=== PATIENT | male | born 1950 | race Caucasian/White ===

== ENCOUNTER → 2017-11-21 | Outpatient (CLI) | payer OTHER ==
[~2017-11-21] MED LIST: GADOBUTROL 10 ML VIAL IVP ONE
== END ==
LOC: FIMAGING 09:45
PROVIDERS: ATTEND Internal Medicine Hematology & Oncology
DX: Z12.89 Encounter for screening for malignant neoplasm of other sites (principal); C34.11 Malignant neoplasm of upper lobe, right bronchus or lung
CPT/HCPCS: A9585

== ENCOUNTER → 2018-09-30 | Outpatient (CLI) | payer OTHER, MEDICARE ==
[~2018-09-30] MED LIST changes: -GADOBUTROL 10 ML VIAL IVP ONE; +LIDOCAINE 1% 300 MG/30 ML SDV ONE
== END ==
LOC: FIMAGING 07:42
PROVIDERS: ATTEND Internal Medicine Hematology & Oncology
PROC: 07B53ZX Excision of Right Axillary Lymphatic, Percutaneous Approach, Diagnostic (ICD-10-PCS; principal; 2018-09-30)
DX: C77.3 Secondary and unspecified malignant neoplasm of axilla and upper limb lymph nodes (principal); C34.11 Malignant neoplasm of upper lobe, right bronchus or lung

== ENCOUNTER → 2018-10-04 | Outpatient (CLI) | payer OTHER, MEDICARE ==
[~2018-10-04] MED LIST changes: +GADOBUTROL 10 ML VIAL IVP ONE; -LIDOCAINE 1% 300 MG/30 ML SDV ONE
== END ==
LOC: FIMAGING 07:29
PROVIDERS: ATTEND Internal Medicine Hematology & Oncology
DX: M84.451A Pathological fracture, right femur, initial encounter for fracture (principal); C34.11 Malignant neoplasm of upper lobe, right bronchus or lung; C79.51 Secondary malignant neoplasm of bone
CPT/HCPCS: 73723; A9585

== ENCOUNTER → 2018-10-14 | Outpatient (CLI) | payer OTHER, MEDICARE | LOC: FIMAGING 07:35 | PROVIDERS: ATTEND Orthopaedic Surgery | DX: C79.51 Secondary malignant neoplasm of bone (principal); C34.11 Malignant neoplasm of upper lobe, right bronchus or lung ==

== ENCOUNTER → 2018-11-22 | Outpatient (CLI) | payer OTHER, MEDICARE | LOC: FIMAGING 09:01 | PROVIDERS: ATTEND Internal Medicine Hematology & Oncology | DX: I80.02 Phlebitis and thrombophlebitis of superficial vessels of left lower extremity (principal) ==